=== PATIENT | female | born 1980 ===

== ENCOUNTER 2018-12-16 08:36 | Emergency (ER) | payer MEDICAID, OTHER ==
[2018-12-16 08:50] VITALS: BMI 28.3
[2018-12-16] MEDS ORDERED: Sodium Chloride 0.9% 1,000 ML IV STA (10:02)
--- NOTE | 2018-12-16 10:28 | ED PDOC ---
HPI: Abdomen Time Seen by Provider: 12/16/18 09:25 Chief Complaint (Nursing): Abdominal Pain Chief Complaint (Provider): Abdominal Pain History Per: Patient History/Exam Limitations: no limitations Onset/Duration Of Symptoms: Days (x7) Current Symptoms Are (Timing): Still Present Additional Complaint(s): 38 year old female presents to the emergency department with a complaint of upper and lower abdominal pain for 7 days. She additionally reports some nausea, vomiting, and diarrhea. Otherwise, no urinary issues, shortness of breath, chest pain, or recent sick contacts. Past Medical History Reviewed: Historical Data, Nursing Documentation, Vital Signs Vital Signs: Last Vital Signs Temp 98.6 F 12/16/18 08:50 Pulse 68 12/16/18 08:50 Resp 17 12/16/18 08:50 BP 110/73 12/16/18 08:50 Pulse Ox 98 12/16/18 08:50 Primary Care Provider: Non [facility] Provider, - Medical History PMH: No Chronic Diseases - Surgical History Surgical History: No Surg Hx - Family History Family History: States: Unknown Family Hx - Home Medications Home Medications: Ambulatory Orders Medication Instructions Recorded Famotidine [Pepcid] 20 mg PO BID #20 tab 12/07/15 Nitrofurantoin Macrocrystals 100 mg PO BID #14 cap 12/07/15 [Macrobid] Ondansetron [Zofran Odt] 4 mg PO Q8H PRN #15 odt 12/07/15 Amoxicillin/Clavulanate [Augmentin 1 tab PO BID #20 tab 07/03/18 875 MG-125 MG] Famotidine [Pepcid] 20 mg PO DAILY PRN #6 tab 12/16/18 Ondansetron ODT [Zofran ODT] 4 mg PO TID PRN #8 odt 12/16/18 - Allergies Allergies/Adverse Reactions: Allergies Allergy/AdvReac Type Severity Reaction Status Date / Time No Known Allergies Allergy Verified 07/12/18 14:06 Review of Systems ROS Statement: Except As Marked, All Systems Reviewed And Found Negative Cardiovascular: Negative for: Chest Pain Respiratory: Negative for: Shortness of Breath Gastrointestinal: Positive for: Nausea, Vomiting, Abdominal Pain (upper and lower), Diarrhea Genitourinary Female: Negative for: Dysuria, Hematuria Physical Exam - Reviewed Nursing Documentation Reviewed: Yes Vital Signs Reviewed: Yes - Physical Exam Appears: Positive for: Non-toxic, No Acute Distress Head Exam: Positive for: ATRAUMATIC, NORMAL INSPECTION, NORMOCEPHALIC Skin: Positive for: Normal Color Eye Exam: Positive for: Normal appearance ENT: Positive for: Normal ENT Inspection Neck: Positive for: Normal Cardiovascular/Chest: Positive for: Regular Rate, Rhythm Respiratory: Positive for: Normal Breath Sounds. Negative for: Respiratory Distress Gastrointestinal/Abdominal: Positive for: Soft, Tenderness (epigastric and suprapubic). Negative for: Other (right, left, or periumbilical tenderness) Back: Positive for: Normal Inspection. Negative for: L CVA Tenderness, R CVA Tenderness Extremity: Positive for: Normal ROM (upper/lower) Neurological/Psych: Positive for: Awake, Alert, Normal Tone, Oriented - Laboratory Results Result Diagrams: 12/16/18 10:36 12/16/18 10:36 Interpretation Of Abn Labs: GLUCOSE 192 AND AST AND ALT ELEVATION Urine POC: Negative - ECG O2 Sat by Pulse Oximetry: 98 (RA) Pulse Ox Interpretation: Normal - Progress ED Course And Treament: 1236: AAOx3. Pain free. Tolerated PO. IV fluids given and should have helped with sugar. Pt. to fu with pcp for elevated liver enzymes and sugar. Medical Decision Making Medical Decision Making: Time: 951 Initial Plan: * Labs * Bentyl PO * IV fluids * Pepcid IVP * Zofran IV -- Scribe Attestation: Documented by Vickie Ramos, acting as a scribe for Mathieu Narayanan MD. Provider Scribe Attestation: All medical record entries made by the Scribe were at my direction and personally dictated by me. I have reviewed the chart and agree that the record accurately reflects my personal performance of the history, physical exam, medical decision making, and the department course for this patient. I have also personally directed, reviewed, and agree with the discharge instructions and disposition. Disposition - Clinical Impression Clinical Impression: Abdominal discomfort, Hyperglycemia, Elevated liver enzymes - Patient ED Disposition Is Patient to be Admitted: No Counseled Patient/Family Regarding: Studies Performed, Diagnosis, Need For Followup, Rx Given - Disposition Referrals: [facility] [Outside] - 12/17/18 Disposition: Routine/Home Disposition Time: 12:37 Condition: STABLE Additional Instructions: Return if not better in 3 days. See the primary care doctor as your liver enzymes are elevated and your sugar is elevated. Regreso si no mejor en 3 jefferson. Consulte al mdico de atencin primaria, ya que venita enzimas hepticas estn elevadas y hopkins azcar est elevada. Prescriptions: Famotidine [Pepcid] 20 mg PO DAILY PRN #6 tab PRN Reason: Pain Ondansetron ODT [Zofran ODT] 4 mg PO TID PRN #8 odt PRN Reason: Nausea/Vomiting Instructions: Hyperglycemia, Adult, Nausea and Vomiting, Adult, Stomach Ache and Stomach Upset Forms: [employer] (German) Print Language: NAURUAN
[2018-12-16 10:53] LABS: BASO % 0.6 % (0.0-2.0); EOS % 0.4 % (0.0-4.0); HEMOGLOBIN 13.5 g/dL (12.0-16.0); LYMPH # 2.3 K/uL (1.0-4.3); LYMPH % 36.2 % (20.0-40.0); MEAN CELL VOLUME 91.8 fl (81.0-99.0); MEAN CORPUSCULAR HEMOGLOBIN 31.5 pg (27.0-31.0); MEAN CORPUSCULAR HGB CONC 34.4 g/dL (33.0-37.0); MEAN PLATELET VOLUME 8.1 fl (7.2-11.7); MONO # 0.4 K/uL (0.0-0.8); MONO % 5.9 % (0.0-10.0); NEUT # 3.7 K/uL (1.8-7.0); NEUT % 56.9 % (50.0-75.0); NRBC % 0.1 % (0.0-0.0); RBC 4.27 Mil/uL (3.80-5.20); RED CELL DISTRIBUTION WIDTH 12.8 % (11.5-14.5); WHITE BLOOD COUNT 6.4 K/uL (4.8-10.8)
[2018-12-16 11:13] LABS: ALB/GLOB RATIO 1.2 (1.0-2.1); ALT/SGPT 119 U/L (9-52); AST/SGOT 71 U/L (14-36); BLOOD UREA NITROGEN 13 mg/dl (7-17); GFR NON-AFRICAN AMERICAN > 60; LIPASE 46 U/L (23-300)
[2018-12-16 13:05] VITALS: BP 122/68; PULSE 76; RESP 18; TEMP 98.1; O2SAT 100
== END 2018-12-16 13:04 | disposition home or self-care (01) ==
LOC: H.ER 08:36
DX: R10.9 Unspecified abdominal pain (principal); R73.9 Hyperglycemia, unspecified; R94.5 Abnormal results of liver function studies; Z79.899 Other long term (current) drug therapy
CPT/HCPCS: 80053; 81025; 83690; 85025; 96374; 99283; J2405; J7030